=== PATIENT | female | born 1965 | race Caucasian/White ===

== ENCOUNTER 2018-11-02 08:00 | Outpatient (CLI) | payer OTHER | END 2018-11-02 23:59 | disposition home or self-care (01) | LOC: LAB.R 08:00 | PROVIDERS: ATTEND Registered Nurse | DX: L90.0 Lichen sclerosus et atrophicus (principal) | CPT/HCPCS: 87491; 87591 ==

== ENCOUNTER 2018-11-11 08:25 | Outpatient (CLI) | payer OTHER ==
[2018-11-11 08:44] LABS: BASOPHILS % (AUTO) 0.8 %; EOSINOPHILS # (AUTO) 0.2 10^3/uL (0.0-0.7); EOSINOPHILS % (AUTO) 4.5 %; HGB - HEMOGLOBIN 12.5 g/dL (12.0-16.0); LYMPHOCYTES # (AUTO) 1.9 10^3/uL (1.5-3.5); LYMPHOCYTES % (AUTO) 40.8 %; MEAN CORPUSCULAR VOLUME 94.3 fL (81.0-99.0); MEAN PLATELET VOLUME 8.7 fL (7.9-10.8); MONOCYTES # (AUTO) 0.3 10^3/uL (0.0-1.0); MONOCYTES % (AUTO) 6.8 %; NEUTROPHILS # (AUTO) 2.2 10^3/uL (1.5-6.6); NEUTROPHILS % (AUTO) 47.1 %; PLT - PLATELET COUNT 247 10^3/uL (130-450); RED CELL DISTRIBUTION WIDTH 12.6 % (12.0-15.0); WHITE BLOOD COUNT 4.7 x10^3/uL (4.8-10.8)
[2018-11-11 09:07] LABS: HB2 TOTAL 13.2 g/dL; HEMOGLOBIN A1C 0.47 g/dL; HEMOGLOBIN A1C % 5.4 % (4.6-6.2)
[2018-11-11 10:13] LABS: CHOL/HDL RATIO 2.5 (<4.4); CHOLESTEROL 217 mg/dL; GLUCOSE,FASTING 96 mg/dL (70-100); HDL CHOLESTEROL 87 mg/dL; LDL CHOLESTEROL,CALCULATED 118 mg/dL; LDL/HDL RATIO 1.4 (<4.4); VLDL CHOLESTEROL 12 mg/dL
== END 2018-11-11 08:26 | disposition home or self-care (01) ==
LOC: LAB 08:25
PROVIDERS: ATTEND Registered Nurse
DX: Z00.00 Encounter for general adult medical examination without abnormal findings (principal)
CPT/HCPCS: 36415; 80061; 82947; 83036; 83721; 84443; 85025

== ENCOUNTER 2018-12-22 16:26 | Outpatient (CLI) | payer OTHER ==
--- NOTE | 2018-12-23 09:46 | Ultrasound Report ---
Reason: SIMPLY THYROID GOITER Procedure Date: 12/22/2018 Accession Number: [id number] / [id number] Procedure: US - Head or Neck Soft Tissue CPT Code: FULL RESULT: EXAM: THYROID ULTRASOUND EXAM DATE: 12/22/2018 05:30 PM. CLINICAL HISTORY: Simple thyroid goiter. COMPARISON: None. TECHNIQUE: Real time sonographic imaging of the thyroid was performed by the security system installer. Multiple in store representative static images were saved for review. FINDINGS: THYROID GLAND: Right Lobe: 4.6 x 1.9 x 1.7 cm, volume 7.8 cc. Normal background echotexture. Right Lobe Nodules: Single, lower pole, solid, hypoechoic, circumscribed margin, vascular nodule measuring 1.6 x 1.1 x 1.3 cm. Left Lobe: 4.4 x 1.3 x 1.9 cm, volume 5.7 cc. Normal background echotexture. Left Lobe Nodules: Single, midpole, rim calcified, hypoechoic, solid nodule, difficult to further characterize given shadowing artifact. Isthmus: 0.1 cm AP. Isthmic Nodules: None. LYMPH NODES: No adenopathy demonstrated in the central or lateral compartment. OTHER: None. IMPRESSION: 1. Intermediate suspicion 1.6 cm, solid, hypoechoic, oval nodule right lower pole thyroid lobe. Fine needle aspirate is recommended. 2. High suspicion 1.6 cm, solid, hypoechoic, rim calcified, midpole nodule left thyroid lobe. Fine needle aspirate is recommended. Management recommendations are based on 2015 [place] [employer] Management Guidelines for Adult Patients with Thyroid Nodules and Differentiated Thyroid Cancer. RADIA
== END 2018-12-22 16:27 | disposition home or self-care (01) ==
LOC: DI 16:26
PROVIDERS: ATTEND Registered Nurse
DX: E04.2 Nontoxic multinodular goiter (principal)
CPT/HCPCS: 76536

== ENCOUNTER 2019-01-13 08:59 | Outpatient (CLI) | payer OTHER ==
--- NOTE | 2019-01-13 14:31 | XRAY Report ---
Reason: STOPPED SMOKING,CHRONIC COUGH Procedure Date: 01/13/2019 Accession Number: [id number] / [id number] Procedure: XR - Chest 2 View X-Ray CPT Code: 59988 FULL RESULT: EXAM: CHEST RADIOGRAPHY EXAM DATE: 01/13/2019 09:25 AM. CLINICAL HISTORY: Stopped smoking, chronic cough. COMPARISON: None. TECHNIQUE: 2 views. FINDINGS: Lungs/Pleura: No focal opacities evident. No pleural effusion. No pneumothorax. Normal volumes. Mediastinum: Heart and mediastinal contours are unremarkable. Other: None. IMPRESSION: Normal 2-view chest radiography. RADIA
== END 2019-01-13 09:00 | disposition home or self-care (01) ==
LOC: DI 08:59
PROVIDERS: ATTEND Registered Nurse
DX: R05 Cough (principal); Z87.891 Personal history of nicotine dependence
CPT/HCPCS: 71046

== ENCOUNTER 2019-02-25 08:25 | Outpatient (CLI) | payer OTHER ==
--- NOTE | 2019-03-11 09:15 | Mammography Report ---
Reason: ANNUAL SCREENING Procedure Date: 02/25/2019 Accession Number: [id number] / [id number] Procedure: [facility] - Screening Mammo Dig Bilat CPT Code: FULL RESULT: EXAM: Screening Mammo Dig Bilat DATE: 02/25/2019 8:47 AM CLINICAL HISTORY: Routine screening TECHNIQUE: (B) - Bilateral CC and MLO views were obtained. COMPARISON: 06/09/2014 and 02/20/2010 PARENCHYMAL PATTERN: (A) - The breasts demonstrate scattered fibroglandular densities bilaterally. FINDINGS: No significant interval change. There are no suspicious masses, calcifications, or areas of distortion. IMPRESSION: Negative examination. BI-RADS category 1. RECOMMENDATION: (ANNUAL) - Recommend routine annual screening mammography. BI-RADS CATEGORY: 1 Negative STANDARD QUALIFYING STATEMENTS: 1. This examination was not reviewed with the aid of Computer-Aided Detection (CAD). 2. A negative or benign imaging report should not preclude biopsy if clinically suspicious findings are present. 3. Dense breasts may obscure an underlying neoplasm. 4. This examination was reviewed without the aid of 3D breast imaging (tomosynthesis).
== END 2019-02-25 08:26 | disposition home or self-care (01) ==
LOC: DI 08:25
PROVIDERS: ATTEND Registered Nurse
DX: Z00.00 Encounter for general adult medical examination without abnormal findings (principal)
CPT/HCPCS: 77067

== ENCOUNTER 2019-09-06 14:55 | Outpatient (CLI) | payer OTHER ==
--- NOTE | 2019-09-07 16:42 | CT Report ---
Reason: HX NICOTINE DEPENDENCE, FAM HX LUNG CA Procedure Date: 09/06/2019 Accession Number: [id number] / [id number] Procedure: CT - CHEST WO CPT Code: Final Report FULL RESULT: EXAM: CT CHEST EXAM DATE: 09/06/2019 03:11 PM. CLINICAL HISTORY: HX NICOTINE DEPENDENCE, FAM HX LUNG CA. COMPARISONS: CHEST 2 VIEW 01/13/2019 9:02 AM. TECHNIQUE: Routine helical CT imaging was performed through the chest. IV contrast: None. Reconstructions: Coronal and sagittal. In accordance with CT protocol optimization, one or more of the following dose reduction techniques were utilized for this exam: automated exposure control, adjustment of mA and/or KV based on patient size, or use of iterative reconstructive technique. FINDINGS: Lungs/Pleura: Pleural-based nodular opacity measuring 22 x 13 mm at the paramediastinal left upper lobe (6/43). Indeterminate subpleural 4 mm right upper lobe nodule (6/33). Indeterminate 2 mm subpleural right upper lobe pulmonary nodule (6/34 ). Indeterminate 3 mm subpleural right lower lobe nodule (6/72). Indeterminate 4 mm subpleural right lower lobe nodule (6/138). Indeterminate 2 mm subpleural left upper lobe pulmonary nodule (6/36). No pleural effusion or pneumothorax. Mediastinum: Calcified 19 mm left thyroid nodule. Nodular appearance of the right thyroid lobe. No pathologic lymphadenopathy. Heart size is normal. Mild coronary artery calcifications. Bones: Unremarkable. Visualized Abdomen: Unremarkable. Other: None. IMPRESSION: 1. Indeterminate 22 mm paramediastinal left upper lobe nodular opacity; neoplasia should be excluded. Consider follow-up chest CT at 3 months or alternatively PET/CT or tissue sampling for further evaluation. 2. Few other small indeterminate pulmonary nodules measuring up to approximately 4 mm. 3. Other findings as noted above. RADIA
== END 2019-09-06 14:56 | disposition home or self-care (01) ==
LOC: DI 14:55
PROVIDERS: ATTEND Internal Medicine
DX: Z12.2 Encounter for screening for malignant neoplasm of respiratory organs (principal); R91.8 Other nonspecific abnormal finding of lung field; E04.1 Nontoxic single thyroid nodule; I25.10 Atherosclerotic heart disease of native coronary artery without angina pectoris; Z87.891 Personal history of nicotine dependence; Z80.1 Family history of malignant neoplasm of trachea, bronchus and lung
CPT/HCPCS: 71250

== ENCOUNTER 2019-10-28 16:00 | Outpatient (CLI) | payer OTHER ==
--- NOTE | 2019-10-28 17:20 | Ultrasound Report ---
Reason: LEG SWELLING AND PAIN LT Procedure Date: 10/28/2019 Accession Number: [id number] / [id number] Procedure: US - Duplex Ext Veins Left CPT Code: Final Report FULL RESULT: EXAM: LEFT LOWER EXTREMITY VENOUS ULTRASOUND EXAM DATE: 10/28/2019 04:45 PM. CLINICAL HISTORY: LEG SWELLING AND PAIN LT. COMPARISON: CHEST W/O 09/06/2019 3:09 PM. TECHNIQUE: Real-time sonographic vascular imaging was performed by the meat curer through the lower extremity utilizing both color-flow and Doppler spectral analysis. Multiple manufacturer's representative static images were saved for review. FINDINGS: Common Femoral Vein (CFV): Normal. CFV-GSV Junction: Normal. Profunda Femoral Vein (PFV): Normal. Femoral Vein (FV) Prox: Normal. Femoral Vein (FV) Mid: Normal. Femoral Vein (FV) Dist: Normal. Popliteal Vein: Normal. Posterior Tibial Veins: Normal. Peroneal Veins: Normal. Other: None. IMPRESSION: No evidence for acute left lower extremity deep venous thrombosis. RADIA The call report notification system was initiated by Dr. Wilfrid Salazar at 05:20 PM on 10/28/2019.
== END 2019-10-28 16:01 | disposition home or self-care (01) ==
LOC: DI 16:00
PROVIDERS: ATTEND Internal Medicine
DX: M79.662 Pain in left lower leg (principal); R22.42 Localized swelling, mass and lump, left lower limb

== ENCOUNTER 2019-12-26 16:59 | Outpatient (CLI) | payer OTHER ==
[2019-12-26] MEDS ORDERED: IOVERSOL 320 100 ML VIAL IVP ONE ×2 (17:14→18:30)
[2019-12-26] MEDS ORDERED: IOVERSOL 320 50 ML VIAL ONE (17:14)
[2019-12-26] MEDS ORDERED: IOVERSOL 320 50 ML VIAL PO ONE (18:30)
--- NOTE | 2019-12-26 20:05 | CT Report ---
Reason: ABDOMINAL PAIN, FEVER, SOLITARY PULMONARY NODULE Procedure Date: 12/26/2019 Accession Number: [id number] / [id number] Procedure: CT - Abdomen/Pelvis W CPT Code: Addended Final Report FULL RESULT: EXAM: CT ABDOMEN AND PELVIS WITH CONTRAST. EXAM DATE: 12/26/2019 06:24 PM. CLINICAL HISTORY: Abdominal pain, fever, solitary pulmonary nodule. COMPARISONS: None. TECHNIQUE: Routine helical CT imaging was performed through the abdomen and pelvis. IV contrast: OPTIRAY 320. Enteric contrast: Yes. Reconstructions: Coronal and sagittal. In accordance with CT protocol optimization, one or more of the following dose reduction techniques were utilized for this exam: automated exposure control, adjustment of mA and/or KV based on patient size, or use of iterative reconstructive technique. FINDINGS: Lung Bases: The visualized lung bases are unremarkable. Liver: Normal. No masses. Gallbladder/Bile Ducts: Unremarkable. Spleen: Normal. Pancreas: Normal. Adrenal Glands: Normal. Kidneys: Normal. No masses or hydronephrosis. Peritoneal Cavity/Bowel: Most of the large bowel is under distended. There is; however, mild circumferential mural thickening with pericolic inflammatory stranding involving the ascending and proximal transverse colon. No associated bowel obstruction. No pneumoperitoneum. The appendix is well visualized and normal. Pelvic Organs: Normal. The bladder and visualized pelvic organs are within normal limits. Vasculature: No aneurysms or other significant abnormality. Bones: No significant abnormality. Other: None. IMPRESSION: 1. Ascending through proximal transverse colon colitis presumably secondary to infectious/inflammatory etiologies. There is no associated bowel obstruction, free air or fluid collection. [facility]CR[facility] The call report notification system was initiated by Dr. Albaro Deras at 08:03 PM on 12/26/2019. ADDENDUM: 12/26/19 20:16 The above call report findings were discussed with Dr Brownlee by Dr. Albaro Deras at 08:16 PM on 12/26/2019.
--- NOTE | 2019-12-26 20:12 | CT Report ---
Reason: ABDOMINAL PAIN, FEVER, SOLITARY PULMONARY NODULE Procedure Date: 12/26/2019 Accession Number: [id number] / [id number] Procedure: CT - CHEST W CPT Code: Addended Final Report FULL RESULT: EXAM: CT CHEST EXAM DATE: 12/26/2019 06:24 PM. CLINICAL HISTORY: ABDOMINAL PAIN, FEVER, SOLITARY PULMONARY NODULE. COMPARISONS: CHEST W/O 09/06/2019 3:09 PM. TECHNIQUE: Routine helical CT imaging was performed through the chest. IV contrast: None. Reconstructions: Coronal and sagittal. In accordance with CT protocol optimization, one or more of the following dose reduction techniques were utilized for this exam: automated exposure control, adjustment of mA and/or KV based on patient size, or use of iterative reconstructive technique. FINDINGS: Lungs/Pleura: There is a persistent 1.9 x 1.7 cm focus of anterior left upper lobe paramediastinal consolidation. This focus appears slightly better aerated since the previous exam. No new areas of airspace consolidation. There is a stable 4 mm superior segment right upper lobe nodule with several additional 2-3 mm subpleural nodules all stable since the previous exam. A small focus of scarring and/or atelectasis seen in the right middle lobe. No pleural effusion or pneumothorax. Mediastinum: Normal. No adenopathy or masses. The heart and great vessels are normal. Bones: Unremarkable. Visualized Abdomen: Unremarkable. Other: Stable 2 cm calcified left thyroid lobe nodule. IMPRESSION: 1. There is a persistent anterior left upper lobe paramediastinal opacity which appears slightly better aerated compared to the previous exam. This most likely represents sequela of previous infection. Consider follow-up chest CT in 6-12 months to confirm stability and/or resolution. 2. Additional 2-4 mm peripheral lung nodules as above are stable. 3. No acute airspace disease. RADIA The call report notification system was initiated by Dr. Albaro Deras at 08:11 PM on 12/26/2019. ADDENDUM: 12/26/19 20:16 The above call report findings were discussed with Dr Brownlee by Dr. Albaro Deras at 08:16 PM on 12/26/2019.
== END 2019-12-26 17:00 | disposition home or self-care (01) ==
LOC: DI 16:59
PROVIDERS: ATTEND Internal Medicine
DX: K52.9 Noninfective gastroenteritis and colitis, unspecified (principal); R91.8 Other nonspecific abnormal finding of lung field
CPT/HCPCS: 71260; 74177; Q9967

== ENCOUNTER 2019-12-27 08:00 | Outpatient (CLI) | payer OTHER | END 2019-12-27 23:59 | disposition home or self-care (01) | LOC: LAB.R 08:00 | PROVIDERS: ATTEND Internal Medicine | DX: K52.9 Noninfective gastroenteritis and colitis, unspecified (principal) | CPT/HCPCS: 81599; 83630; 87045; 87046; 87177; 87209; 87329; 87493 ==

== ENCOUNTER 2020-02-22 17:27 | Outpatient (CLI) | payer OTHER | END 2020-02-22 17:28 | disposition home or self-care (01) | LOC: COV 17:27 | PROVIDERS: ATTEND Family Medicine | DX: R05 Cough (principal); R53.83 Other fatigue; J02.9 Acute pharyngitis, unspecified; R19.7 Diarrhea, unspecified | CPT/HCPCS: 81599 ==

== ENCOUNTER 2020-09-10 08:00 | Outpatient (CLI) | payer OTHER ==
[2020-09-10 22:16] LABS: CANDIDA GROUP DNA NEGATIVE (NEGATIVE); CANDIDA KRUSEI DNA NEGATIVE (NEGATIVE); TRICHOMONAS VAGINALIS DNA NEGATIVE (NEGATIVE)
== END 2020-09-10 23:59 | disposition home or self-care (01) ==
LOC: LAB.R 08:00
PROVIDERS: ATTEND Advanced Practice Midwife
DX: R30.0 Dysuria (principal)
CPT/HCPCS: 87086; 87181; 87661; 87801

== ENCOUNTER 2020-09-13 13:17 | Outpatient (CLI) | payer OTHER ==
--- NOTE | 2020-09-14 17:10 | CT Report ---
PROCEDURE: CHEST WO INDICATIONS: F/U NODULES TECHNIQUE: Noncontrast 5 mm thick sections acquired from the pulmonary apices to the posterior costophrenic angl es. 7 mm thick coronal and sagittal MIP reformats were then acquired. For radiation dose reduction, the following was used: automated exposure control, adjustment of mA and/or kV according to patient size. COMPARISON: Prior chest CT 12/26/2019. FINDINGS: Image quality: Excellent. Lungs and pleura: No acute air space opacities. There are several scattered foci of linear scarring at each lung base, and also at the anterior right midlung, near the junction of the anterior minor fi ssure, with the right middle lobe. No pulmonary nodule is seen that would suggest presence of early m anifestation of lung carcinoma. No pleural effusions or pneumothorax. Central and peripheral airway s are patent and normal in caliber. Mediastinum: Heart size is normal. No pericardial effusion. No mediastinal adenopathy by size crit eria. Thoracic aorta and central pulmonary arteries are normal in size. Esophagus is normal in remigio jesus. No hiatal hernia. Bones and chest wall: No suspicious bony lesions. No vertebral body compression fractures. No axil martina or supraclavicular adenopathy by size criteria. The thyroid is normal in size. Abdomen: Visualized upper abdominal solid organs and bowel loops appear normal in the absence of con trast. IMPRESSION: Resolution of a previously reported left upper lobe focus of airspace disease, no lung nodule is seen that would indicate likelihood of early manifestation of lung carcinoma. There is a thin band of wha t appears to be scarring at the minor fissure margin at the anterior right midlung, within the inferi or anterior border of the right upper lobe. This appears to represent mild lung scarring. No follow-u p recommended. Reviewed by: Marty Salazar MD on 09/14/2020 5:09 PM PST Approved by: Marty Salazar MD on 09/14/2020 5:09 PM PST Station ID: [id number]
== END 2020-09-13 13:18 | disposition home or self-care (01) ==
LOC: DI 13:17
PROVIDERS: ATTEND Internal Medicine
DX: J98.4 Other disorders of lung (principal)
CPT/HCPCS: 71250

== ENCOUNTER 2020-10-01 17:23 | Outpatient (CLI) | payer OTHER | END 2020-10-01 17:24 | disposition home or self-care (01) | LOC: COV 17:23 | PROVIDERS: ATTEND Family Medicine | DX: R50.9 Fever, unspecified (principal); R05 Cough; R06.02 Shortness of breath; M79.10 Myalgia, unspecified site; R53.83 Other fatigue; R07.0 Pain in throat; R19.7 Diarrhea, unspecified; R09.81 Nasal congestion; R11.2 Nausea with vomiting, unspecified; Z20.828 Contact with and (suspected) exposure to other viral communicable diseases ==

== ENCOUNTER 2021-08-12 11:24 | Outpatient (CLI) | payer OTHER ==
--- NOTE | 2021-08-13 17:02 | CARDIAC PROCEDURE NOTE ---
Stress Test Report Service Date: 08/12/21 Indication for Test: Chest pain and fatigue Significant Medical History: none Cardiac Risk Factors: history of smoking. Type of Stress Test: ETT with Echocardiography
--- NOTE | 2021-08-13 17:05 | CARDIAC PROCEDURE NOTE ---
Stress Test Report Type of Stress Test: ETT with Echocardiography (pt exercised 8 mins 41 seconds on Sánchez protocol, reaching 10:16 mets. No symptoms during test. HR 74 to 169. BP 136/83 to 217/109. Did [address] depressions in V5. Had occasional PAC)
== END 2021-08-12 11:25 | disposition home or self-care (01) ==
LOC: DI 11:24
PROVIDERS: ATTEND Internal Medicine
DX: R07.9 Chest pain, unspecified (principal); I49.1 Atrial premature depolarization; Z87.891 Personal history of nicotine dependence
CPT/HCPCS: 93350

== ENCOUNTER 2022-10-10 12:55 | Outpatient (CLI) | payer SELFPAY | END 2022-10-10 12:56 | disposition short-term general hospital (02) | LOC: EMS 12:55 | DX: S99.912A Unspecified injury of left ankle, initial encounter (principal); W54.1XXA Struck by dog, initial encounter; Y93.89 Activity, other specified; Y92.838 Other recreation area as the place of occurrence of the external cause | CPT/HCPCS: A0425; A0427 ==